=== PATIENT | male | born 1990 | race Caucasian/White ===

== ENCOUNTER 2024-02-15 04:11 | Inpatient (IN) | payer OTHER ==
[~2024-02-15] VITALS: Ht 167.6 cm; Wt 97.5 kg
[2024-02-15 04:32] VITALS: O2SAT 100
[2024-02-15 05:13] LABS: BASOPHILS % 0.7 % (0.0-2.0); EOSINOPHILS % 0.2 % (0.0-5.0); HEMOGLOBIN. 16.1 g/dL (14.0-18.0); LYMPHOCYTES % 9.4 % (20.0-50.0); MEAN CORPUSCULAR HEMOGLOBIN 30.4 pg (28.0-32.0); MEAN CORPUSCULAR HGB CONC 34.3 g/dL (31.0-37.0); MEAN CORPUSCULAR VOLUME 88.7 fL (80.0-94.0); MEAN PLATELET VOLUME 10.9 fl (7.4-10.4); MONOCYTES % 4.8 % (2.0-8.0); NEUTROPHILS % 84.9 % (40.0-76.0); PLATELET 180 x1000/uL (130-400); RED CELL DISTRIBUTION WIDTH 14.1 % (11.6-14.6)
[2024-02-15 05:29] LABS: CHLORIDE 102 mEq/L (98-107); POTASSIUM 3.9 mEq/L (3.5-5.1); SODIUM 139 mEq/L (136-145)
[2024-02-15 05:30] LABS: CALCIUM 10.6 mg/dL (8.7-10.4); CARBON DIOXIDE 29 mEq/L (21-32)
[2024-02-15 05:35] LABS: CREATININE 1.2 mg/dL (0.6-1.3); GLUCOSE 116 mg/dL (70-105); UREA NITROGEN BLOOD 11 mg/dL (9-23)
[2024-02-15 05:37] LABS: ALANINE AMINOTRANSFERASE 26 IU/L (10-49); ALBUMIN 5.3 g/dL (3.2-4.8); ASPARTATE AMINOTRANSFERASE 16 IU/L (<34); BILIRUBIN DIRECT 0.4 mg/dL (<=3.0); BILIRUBIN TOTAL 1.7 mg/dL (0.1-1.0); PROTEIN TOTAL 8.2 g/dL (6.0-8.3)
[2024-02-15] MEDS: ONDANSETRON HCL 4MG/2ML INJ IV STA (06:47)
[2024-02-15] MEDS: KETOROLAC 30MG/ML VIAL IV STA (06:47)
[2024-02-15] MEDS: SODIUM CHLORIDE 0.9% 1,000 ML IV ONE (06:48)
[2024-02-15 06:53] LABS: CLARITY URINE CLEAR (CLEAR); COLOR URINE ORANGE (YELLOW); GLUCOSE URINE NEGATIVE (NEGATIVE); KETONES URINE NEGATIVE (NEGATIVE); LEUKOCYTE ESTERASE URINE NEGATIVE (NEGATIVE); NITRITE URINE NEGATIVE (NEGATIVE); OCCULT BLOOD URINE NEGATIVE (NEGATIVE); PH URINE 5.5 (4.5-8.0); PROTEIN URINE TRACE (NEGATIVE); SPECIFIC GRAVITY URINE 1.021 (1.005-1.030)
[2024-02-15 07:05] LABS: BACTERIA URINE TRACE; RBC URINE NONE SEEN /hpf (0-2); SQUAMOUS EPITHELIAL CELL URINE NONE SEEN /lpf (RARE/1+); WBC URINE 0-2 /hpf (0-2)
[2024-02-15] MEDS ORDERED: SKIN ADHESIVE 0.7 GM EA TOP ONE ×2 (07:20→09:17)
[2024-02-15] MEDS ORDERED: BUPIVACAINE HCL/PF 0.5% (5MG/ML) 10ML ONE (07:20)
[2024-02-15] MEDS: METRONIDAZOLE 500 MG PREMIX 100 ML IV ONE (07:33)
[2024-02-15] MEDS: LEVOFLOXACIN 750MG PREMIX 150 ML IV ONE (07:34)
[2024-02-15] MEDS: MORPHINE SULFATE 4 MG/ML INJ (FOR IV/IM USE) IV ONE (07:40)
[2024-02-15] MEDS ORDERED: FAMOTIDINE 20MG/2ML VIAL IV ONE (08:14)
[2024-02-15] MEDS ORDERED: SUGAMMADEX SODIUM 200MG/2ML VIAL IV ONE (08:14)
[2024-02-15] MEDS ORDERED: ONDANSETRON HCL 4MG/2ML INJ IV PRN ×2 (08:30)
[2024-02-15] MEDS ORDERED: FENTANYL CITRATE/PF 50MCG/ML 2ML VIAL IV PRN (08:30)
[2024-02-15] MEDS ORDERED: HYDROCODONE/ACETAMINOPHEN 5/325MG TABLET PO PRN ×2 (08:30)
[2024-02-15] MEDS ORDERED: HYDROMORPHONE HCL/PF 1MG/ML INJ IV PRN (08:30)
[2024-02-15] MEDS ORDERED: ACETAMINOPHEN 1000MG/100ML 100 ML IV NR (08:30)
[2024-02-15] MEDS ORDERED: NALOXONE HCL 0.4MG/ML VIAL IV PRN (08:45)
[2024-02-15] MEDS ORDERED: DEXT 5%/0.45% NACL KCL 20MEQ/L 1,000 ML IV SCH (09:00)
[2024-02-15 12:00] VITALS: BP 117/74; PULSE 63; PULSE 66; RESP 18; TEMP 36.61404; TEMP 36.6404; O2SAT 97
[2024-02-15] MEDS ORDERED: CLONIDINE 0.1MG TABLET PO PRN (12:45)
[2024-02-15] MEDS ORDERED: GUAIFENESIN 200MG/10ML SUGAR FREE UDC PO PRN (12:45)
[2024-02-15] MEDS ORDERED: IPRATROPIUM/ALBUTEROL 0.5-3(2.5)MG/3ML NEB HHN PRN (12:45)
[2024-02-15] MEDS: SODIUM CHLORIDE 0.9% 1,000 ML IV SCH (12:45)
[2024-02-15 16:00] VITALS: BP 125/68; PULSE 68; RESP 17; TEMP 35.11392; O2SAT 98
[2024-02-15] MEDS: MORPHINE SULFATE 2 MG/ML INJ (NOT FOR IM USE) IV PRN (18:48)
[2024-02-15 20:00] VITALS: BP 104/57; PULSE 61; RESP 18; TEMP 36.89184; O2SAT 97
[2024-02-15] MEDS: MORPHINE SULFATE 4 MG/ML INJ (FOR IV/IM USE) IV PRN (23:47)
[2024-02-16] VITALS: BP 118/64; PULSE 72; RESP 18; TEMP 36.55848; O2SAT 98
[2024-02-16 04:00] VITALS: BP 121/68; PULSE 78; RESP 18; TEMP 36.50292
[2024-02-16 08:00] VITALS: BP 127/83; PULSE 65; RESP 19; TEMP 36.72516; O2SAT 95
[2024-02-16 09:01] LABS: HEMATOCRIT 41.8 % (42.0-52.0); HEMOGLOBIN 13.7 g/dL (14.0-18.0); MEAN CORPUSCULAR HEMOGLOBIN 29.5 pg (28.0-32.0); MEAN CORPUSCULAR HGB CONC 32.8 g/dL (31.0-37.0); PLATELET 148 x1000/uL (130-400); RED BLOOD CELL COUNT 4.64 mill/uL (4.7-6.1); RED CELL DISTRIBUTION WIDTH 14.3 % (11.6-14.6); WHITE BLOOD COUNT 11.1 x1000/uL (4.5-11.0)
[2024-02-16 09:21] LABS: CALCIUM 9.5 mg/dL (8.7-10.4); CHLORIDE 106 mEq/L (98-107); SODIUM 140 mEq/L (136-145)
[2024-02-16 09:22] LABS: CARBON DIOXIDE 25 mEq/L (21-32)
[2024-02-16 09:27] LABS: GLUCOSE 85 mg/dL (70-105); UREA NITROGEN BLOOD 15 mg/dL (9-23)
[2024-02-16 12:00] VITALS: BP 127/83; PULSE 68; RESP 19; TEMP 36.16956; O2SAT 68
[2024-02-16] MEDS: CEFTRIAXONE 1GM/50ML 50 ML IV SCH (14:00)
[2024-02-16] MEDS: METRONIDAZOLE 500 MG PREMIX 100 ML IV SCH (16:50)
[2024-02-16 20:00] VITALS: BP 102/57; PULSE 69; RESP 19; TEMP 37.11408; O2SAT 96
[2024-02-17] VITALS: BP 147/93; PULSE 70; RESP 18; TEMP 36.55848; O2SAT 97
[2024-02-17 04:00] VITALS: BP 139/91; PULSE 61; RESP 18; TEMP 36.55848; O2SAT 98
[2024-02-17 08:00] VITALS: BP 115/69; PULSE 57; RESP 18; TEMP 35.94732; O2SAT 97
[2024-02-17] MEDS ORDERED: METR375C2 MT (11:29)
[2024-02-17] MEDS ORDERED: CIPR500S3 PO (11:29)
[2024-02-17] MEDS ORDERED: ACET-2708 MT (11:31)
[2024-02-17 19:52] VITALS: BP 115/69; PULSE 57; RESP 18
== END 2024-02-17 20:49 | disposition home or self-care (01) | DRG 399 ==
LOC: ER 04:11 → 6EST 10:05 → EDBEDREQ 10:15 → EDBEDREQTM 10:15
PROVIDERS: ADMIT Hospitalist; ATTEND Hospitalist
PROC: 0DTJ4ZZ Resection of Appendix, Percutaneous Endoscopic Approach (ICD-10-PCS; principal; 2024-02-15)
DX: K35.32 Acute appendicitis with perforation, localized peritonitis, and gangrene, without abscess (principal); E66.9 Obesity, unspecified; Z87.442 Personal history of urinary calculi; Z68.34 Body mass index [BMI] 34.0-34.9, adult
CPT/HCPCS: 36415; 74176; 80048; 80076; 81003; 85025; 85027; 86850; 86900; 88304; 99285; J0696; J1885; J1956; J2270; J2405; J3490; J7030; J0131